=== PATIENT | female | born 1985 ===

== ENCOUNTER 2016-09-10 11:19 | Emergency (ER) | payer SELFPAY ==
[2016-09-10 11:43] VITALS: BP 104/73; PULSE 89; RESP 18; TEMP 98.3; O2SAT 100
--- NOTE | 2016-09-10 13:44 | ED PDOC ---
HPI: Abdomen Time Seen by Provider: 09/10/16 13:00 Chief Complaint (Nursing): Abdominal Pain Chief Complaint (Provider): Abdominal Pain History Per: Patient History/Exam Limitations: no limitations Onset/Duration Of Symptoms: Days (x2 days) Current Symptoms Are (Timing): Still Present Additional Complaint(s): 30 y/o female presents to the emergency department with an abdominal pain described as "heavy weight" to the lower abdominal region x2 days. Associated with chills, ear pain, headache, fever, and experiencing a burning sensation during urination. Patient, A1, states she is 3 weeks far along within her and feels too much weight on her belly. Denies vomiting, vaginal bleeding, or cough. LMP: 08/03/2016 Past Medical History Reviewed: Historical Data, Nursing Documentation, Vital Signs Vital Signs: Last Vital Signs Temp 98.3 F 09/10/16 11:39 Pulse 89 09/10/16 11:39 Resp 18 09/10/16 11:39 BP 104/73 09/10/16 11:39 Pulse Ox 100 09/10/16 14:11 - Medical History PMH: Anxiety, Depression Denies: Diabetes, Hepatitis, HIV, HTN, Chronic Kidney Disease, Seizures, Sexually Transmitted Disease - Surgical History Surgical History: Cholecystectomy - Family History Family History: States: Unknown Family Hx - Social History Current smoker - smoking cessation education provided: No Alcohol: None Drugs: Denies - Home Medications Home Medications: Ambulatory Orders Medication Instructions Recorded Citalopram [celEXA] 20 mg PO DAILY #30 tab 02/29/16 Mirtazapine [Remeron] 15 mg PO HS PRN #30 tab 02/29/16 Cephalexin [Keflex] 500 mg PO QID #28 capsule 09/10/16 - Allergies Allergies/Adverse Reactions: Allergies Allergy/AdvReac Type Severity Reaction Status Date / Time aspirin Allergy SHORTNESS Verified 02/25/16 21:22 OF BREATH Review of Systems ROS Statement: Except As Marked, All Systems Reviewed And Found Negative Constitutional: Positive for: Fever, Chills ENT: Positive for: Ear Pain Respiratory: Negative for: Cough Gastrointestinal: Positive for: Abdominal Pain (described as "heavy weight" to the lower abdominal region). Negative for: Vomiting Genitourinary Female: Positive for: Dysuria. Negative for: Vaginal Bleeding Neurological: Positive for: Headache Physical Exam - Reviewed Nursing Documentation Reviewed: Yes Vital Signs Reviewed: Yes - Physical Exam Appears: Positive for: Non-toxic, No Acute Distress Head Exam: Positive for: ATRAUMATIC, NORMAL INSPECTION, NORMOCEPHALIC Skin: Positive for: Normal Color, Warm, Dry ENT: Positive for: Other (Left ear is erythematous with some fluid. ). Negative for: Normal ENT Inspection Neck: Positive for: Normal, Supple Cardiovascular/Chest: Positive for: Regular Rate, Rhythm. Negative for: Murmur Respiratory: Positive for: Normal Breath Sounds. Negative for: Accessory Muscle Use, Respiratory Distress Gastrointestinal/Abdominal: Positive for: Normal Exam, Soft. Negative for: Tenderness Neurologic/Psych: Positive for: Alert, Oriented - ECG O2 Sat by Pulse Oximetry: 100 (RA) Pulse Ox Interpretation: Normal Medical Decision Making Medical Decision Making: Time: 13:20 Initial impression: Abdominal Pain rule out urinary tract infection. Left ear otitis media. Initial plan: --Tylenol 650 mg PO --Urine C&S --Urinalysis STAT --Reevaluation Time: 14:05 Upon provider reevaluation patient is feeling better, is medically stable, and requires no further treatment in the ED at this time. Patient will be discharged home with Rx for Keflex 500 mg for otitis media and uti. Counseling was provided and all questions were answered regarding diagnosis and need for follow up with referred clinics. There is agreement to discharge plan. Return if symptoms persist or worsen. Clinical Impression: Dysuria and Abdominal pain during Scribe Attestation: Documented by Virginia Griffith, acting as a scribe for Eric Altman MD. Provider Scribe Attestation: All medical record entries made by the Scribe were at my direction and personally dictated by me. I have reviewed the chart and agree that the record accurately reflects my personal performance of the history, physical exam, medical decision making, and the department course for this patient. I have also personally directed, reviewed, and agree with the discharge instructions and disposition. Disposition - Clinical Impression Clinical Impression: Abdominal pain during , Dysuria - Patient ED Disposition Is Patient to be Admitted: No Counseled Patient/Family Regarding: Diagnosis, Need For Followup, Rx Given - Disposition Referrals: [facility] [Outside] [facility] [Outside] Disposition: Routine/Home Disposition Time: 14:00 Condition: IMPROVED Additional Instructions: follow up with your primary ripshear operator in 1-2 days return to the ED with any worsening or concerning symptoms. Prescriptions: Cephalexin [Keflex] 500 mg PO QID #28 capsule Instructions: Otitis Media (ED), Urinary Tract Infection in (ED) Print Language: GUINEAN
[2016-09-10 13:54] LABS: RBC URINE 5 /hpf (0-3); URINE BACTERIA OCC (<OCC); URINE BILIRUBIN NEGATIVE (NEGATIVE); URINE BLOOD NEGATIVE (NEGATIVE); URINE COLOR YELLOW (YELLOW); URINE GLUCOSE (UA) NEG (Normal); URINE KETONE NEGATIVE (NEGATIVE); URINE LEUKOCYTE ESTERASE MOD Leu/uL (Negative); URINE PROTEIN NEGATIVE (NEGATIVE); URINE UROBILINOGEN 0.2-1.0 mg/dL (0.2-1.0); WBC URINE 36 /hpf (0-5)
== END 2016-09-10 14:45 | disposition home or self-care (01) ==
LOC: H.ER 11:19
DX: O23.40 Unspecified infection of urinary tract in pregnancy, unspecified trimester (principal); H66.92 Otitis media, unspecified, left ear

== ENCOUNTER 2016-10-28 21:29 | Emergency (ER) | payer OTHER, MEDICAID ==
[2016-10-28 21:46] VITALS: BP 146/71; PULSE 81; RESP 16; TEMP 98.1; O2SAT 100
[2016-10-28] MEDS ORDERED: Sodium Chloride 0.9% 1,000 ML IV STA (22:11)
--- NOTE | 2016-10-28 22:17 | ED PDOC ---
HPI: General Adult Time Seen by Provider: 10/28/16 22:01 Chief Complaint (Nursing): ENT Problem Chief Complaint (Provider): left ear irritation, headache, vomiting, chest pain History Per: Patient History/Exam Limitations: no limitations Onset/Duration Of Symptoms: Days Current Symptoms Are (Timing): Still Present Additional History Per: Patient Additional Complaint(s): 31 y/o female, approx 12 weeks gestation, presents with multiple complaints. Patient notes intermittent itching/pain to left ear x 6 months; notes headaches and dizziness when symptoms present. Patient also notes nausea/vomiting since began, was given rx for Zofran by her Field Recruiter but has not yet filled it. Patient notes intermittent midsternal chest pain that started yesterday, worse with movement. Denies fever, dizziness, neck pain, extremity numbness/ weakness, vision changes, nasal congestion/discharge, cough, shortness of breath , palpitations, abdominal pain, vaginal bleeding/discharge, dysuria, hematuria. Past Medical History Reviewed: Historical Data, Nursing Documentation, Vital Signs Vital Signs: Last Vital Signs Temp 98.1 F 10/28/16 21:40 Pulse 81 10/28/16 21:40 Resp 16 10/28/16 21:40 BP 146/71 10/28/16 21:40 Pulse Ox 100 10/28/16 22:42 - Medical History PMH: Anxiety, Depression Denies: Diabetes, Hepatitis, HIV, HTN, Chronic Kidney Disease, Seizures, Sexually Transmitted Disease - Surgical History Surgical History: Cholecystectomy - Family History Family History: States: Unknown Family Hx - Home Medications Home Medications: Ambulatory Orders Medication Instructions Recorded Citalopram [celEXA] 20 mg PO DAILY #30 tab 02/29/16 Mirtazapine [Remeron] 15 mg PO HS PRN #30 tab 02/29/16 Cephalexin [Keflex] 500 mg PO QID #28 capsule 09/10/16 Ciprofloxacin HCl [Cetraxal] 0.5 mg BID #1 bottle 10/29/16 - Allergies Allergies/Adverse Reactions: Allergies Allergy/AdvReac Type Severity Reaction Status Date / Time aspirin Allergy SHORTNESS Verified 02/25/16 21:22 OF BREATH Review of Systems ROS Statement: Except As Marked, All Systems Reviewed And Found Negative ENT: Positive for: Ear Pain (itching, left) Cardiovascular: Positive for: Chest Pain Gastrointestinal: Positive for: Nausea, Vomiting Neurological: Positive for: Headache Physical Exam - Reviewed Nursing Documentation Reviewed: Yes Vital Signs Reviewed: Yes - Physical Exam Appears: Positive for: Well, Non-toxic, No Acute Distress Head Exam: Positive for: ATRAUMATIC, NORMAL INSPECTION, NORMOCEPHALIC Skin: Positive for: Normal Color Eye Exam: Positive for: Normal appearance, EOMI, PERRL ENT: Positive for: Normal ENT Inspection, TM Is/Are (TMs clear b/l. EACs clear b /l. tender upon palpation of left tragus, tender with speculum instertion. no mastoid swelling/tenderness b/l). Negative for: Nasal Congestion, Pharyngeal Erythema, Tonsillar Exudate, Tonsillar Swelling Neck: Positive for: Normal, Painless ROM Cardiovascular/Chest: Positive for: Regular Rate, Rhythm. Negative for: Chest Non Tender (tender to palpate upper to mid sternum; no ecchymosis, swelling noted) Respiratory: Positive for: Normal Breath Sounds Gastrointestinal/Abdominal: Positive for: Normal Exam, Bowel Sounds, Soft. Negative for: Tenderness Back: Positive for: Normal Inspection Extremity: Positive for: Normal ROM Neurologic/Psych: Positive for: Alert, Oriented - Laboratory Results Result Diagrams: 10/28/16 22:37 10/28/16 22:37 - ECG O2 Sat by Pulse Oximetry: 100 - Progress ED Course And Treament: labs, urine, IV fluids, IV reglan, PO tylenol On re-eval, patient feeling better. Patient educated on findings, discharged with rx Cipro otic. Advised Tylenol PRN pain. Follow up Field Recruiter. Return to ED for worsening/concerning symptoms. Disposition - Clinical Impression Clinical Impression: Otitis externa, Hyperemesis gravidarum, Headache, Atypical chest pain - Patient ED Disposition Is Patient to be Admitted: No Counseled Patient/Family Regarding: Studies Performed, Diagnosis, Need For Followup, Rx Given - Disposition Disposition: Routine/Home Disposition Time: 00:44 Condition: IMPROVED Prescriptions: Ciprofloxacin HCl [Cetraxal] 0.5 mg BID #1 bottle Instructions: Hyperemesis Gravidarum (ED), Otitis Externa (ED), Acute Headache (ED), Chest Wall Pain (ED) Print Language: ARMENIAN
[2016-10-28 22:43] LABS: BASO % 0.6 % (0.0-2.0); EOS # 0.1 K/uL (0.0-0.7); EOS % 1.6 % (0.0-4.0); HEMOGLOBIN 10.3 g/dL (12.0-16.0); LYMPH # 2.4 K/uL (1.0-4.3); LYMPH % 32.6 % (20.0-40.0); MEAN CELL VOLUME 85.2 fl (81.0-99.0); MEAN CORPUSCULAR HEMOGLOBIN 28.5 pg (27.0-31.0); MEAN CORPUSCULAR HGB CONC 33.4 g/dL (33.0-37.0); MEAN PLATELET VOLUME 9.4 fl (7.2-11.7); MONO # 0.7 K/uL (0.0-0.8); MONO % 9.4 % (0.0-10.0); NEUT # 4.1 K/uL (1.8-7.0); NEUT % 55.8 % (50.0-75.0); RBC 3.63 Mil/uL (3.80-5.20); RED CELL DISTRIBUTION WIDTH 15.5 % (11.5-14.5); WHITE BLOOD COUNT 7.3 K/uL (4.8-10.8)
[2016-10-28 23:03] LABS: ALB/GLOB RATIO 1.2 (1.0-2.1); ALBUMIN 3.7 g/dL (3.5-5.0); ALT/SGPT 39 U/L (9-52); AST/SGOT 31 U/L (14-36); BLOOD UREA NITROGEN 7 mg/dl (7-17); CALCIUM 9.4 mg/dL (8.4-10.2); GFR AFRICAN-AMERICAN > 60; GFR NON-AFRICAN AMERICAN > 60
[2016-10-28 23:04] LABS: SQUAMOUS EPITHIAL 7 /hpf (0-5); URINE BACTERIA RARE (<OCC); URINE BILIRUBIN NEGATIVE (NEGATIVE); URINE BLOOD NEGATIVE (NEGATIVE); URINE CLARITY CLOUDY (Clear); URINE COLOR YELLOW (YELLOW); URINE GLUCOSE (UA) NEG (Normal); URINE LEUKOCYTE ESTERASE MOD Leu/uL (Negative); URINE NITRATE NEGATIVE (NEGATIVE); URINE PROTEIN NEGATIVE (NEGATIVE)
--- NOTE | 2016-10-29 07:48 | CARD ---
APPROVED REPORT EKG Measurement Heart [id number] <Conclusion> Sinus rhythm with 1st degree AV block Otherwise normal ECG
== END 2016-10-29 00:55 | disposition home or self-care (01) ==
LOC: H.ER 21:29
DX: H60.502 Unspecified acute noninfective otitis externa, left ear (principal); R51 Headache; R07.89 Other chest pain; O21.0 Mild hyperemesis gravidarum; Z3A.12 12 weeks gestation of pregnancy

== ENCOUNTER 2016-12-10 15:21 | Emergency (ER) | payer MEDICAID, SELFPAY ==
[2016-12-10 15:37] VITALS: BP 119/67; PULSE 75; RESP 16; TEMP 98; O2SAT 99
--- NOTE | 2016-12-10 16:45 | ED PDOC ---
HPI: Female Pain Time Seen by Provider: 12/10/16 16:07 Chief Complaint (Nursing): Abdominal Pain History Per: Patient History/Exam Limitations: no limitations Onset/Duration Of Symptoms: Days (1), Gradual Severity: Mild Quality Of Discomfort: Cramping Associated Symptoms: denies: Fever, Chills, Nausea, Vomiting, Back Pain, Chest Pain, Constipation, Urinary Symptoms Alleviating Factors: None Additional History Per: Patient Additional Complaint(s): To ED for evaluation of pelvic pain since this morning. Patient is 19 weeks . Denies vaginal bleeding. no urianry complaints. A2 Abnormal Vaginal Bleeding: No Past Medical History Reviewed: Historical Data, Nursing Documentation, Vital Signs Vital Signs: Last Vital Signs Temp 98.0 F 12/10/16 15:35 Pulse 75 12/10/16 15:35 Resp 16 12/10/16 15:35 BP 119/67 12/10/16 15:35 Pulse Ox 99 12/10/16 15:35 - Medical History PMH: Anxiety, Depression Denies: Diabetes, Hepatitis, HIV, HTN, Chronic Kidney Disease, Seizures, Sexually Transmitted Disease - Surgical History Surgical History: Cholecystectomy - Family History Family History: States: Unknown Family Hx - Living Arrangements Living Arrangements: With Family - Social History Current smoker - smoking cessation education provided: No - Home Medications Home Medications: Ambulatory Orders Medication Instructions Recorded Citalopram [celEXA] 20 mg PO DAILY #30 tab 02/29/16 Mirtazapine [Remeron] 15 mg PO HS PRN #30 tab 02/29/16 Cephalexin [Keflex] 500 mg PO QID #28 capsule 09/10/16 Ciprofloxacin HCl [Cetraxal] 0.5 mg BID #1 bottle 10/29/16 - Allergies Allergies/Adverse Reactions: Allergies Allergy/AdvReac Type Severity Reaction Status Date / Time aspirin Allergy SHORTNESS Verified 02/25/16 21:22 OF BREATH Review of Systems ROS Statement: Except As Marked, All Systems Reviewed And Found Negative Constitutional: Negative for: Fever, Chills Cardiovascular: Negative for: Chest Pain, Palpitations Respiratory: Negative for: Cough, Shortness of Breath Gastrointestinal: Negative for: Nausea, Vomiting, Abdominal Pain, Diarrhea Genitourinary Female: Positive for: Pelvic Pain. Negative for: Dysuria, Frequency, Incontinence, Hematuria, Vaginal Discharge, Vaginal Bleeding Musculoskeletal: Negative for: Neck Pain Neurological: Negative for: Weakness, Numbness Physical Exam - Reviewed Nursing Documentation Reviewed: Yes Vital Signs Reviewed: Yes - Physical Exam Appears: Positive for: Uncomfortable Head Exam: Positive for: ATRAUMATIC, NORMAL INSPECTION, NORMOCEPHALIC Eye Exam: Positive for: Normal appearance Neck: Positive for: Normal, Painless ROM, Supple Cardiovascular/Chest: Positive for: Regular Rate, Rhythm, Chest Non Tender. Negative for: Edema, Gallop, Murmur, Bradycardia, Tachycardia Respiratory: Positive for: Normal Breath Sounds. Negative for: Decreased Breath Sounds, Accessory Muscle Use, Crackles, Rhonchi, Stridor, Wheezing Gastrointestinal/Abdominal: Positive for: Normal Exam, Bowel Sounds, Soft, Other (obese). Negative for: Tenderness Back: Positive for: Normal Inspection. Negative for: L CVA Tenderness, R CVA Tenderness, Vertebral Tenderness, Decreased ROM, Muscle Spasm Extremity: Positive for: Normal ROM. Negative for: Tenderness, Pedal Edema, Calf Tenderness, Capillary Refill, Deformity, Swelling Neurologic/Psych: Positive for: Alert, tool and die inspector II-XII, Oriented. Negative for: Motor/Sensory Deficits - ECG O2 Sat by Pulse Oximetry: 99 Pulse Ox Interpretation: Normal Disposition - Clinical Impression Clinical Impression: Pelvic pain - Patient ED Disposition Is Patient to be Admitted: Transfer of Care Counseled Patient/Family Regarding: Studies Performed, Diagnosis - Disposition Disposition Time: 16:47 Condition: STABLE Patient Signed Over To: Robert Snyder
[2016-12-10 17:41] LABS: BASO % 0.3 % (0.0-2.0); EOS # 0.1 K/uL (0.0-0.7); HEMATOCRIT 31.1 % (34.0-47.0); LYMPH # 1.7 K/uL (1.0-4.3); LYMPH % 23.3 % (20.0-40.0); MEAN CORPUSCULAR HEMOGLOBIN 28.4 pg (27.0-31.0); MEAN PLATELET VOLUME 9.2 fl (7.2-11.7); MONO # 0.6 K/uL (0.0-0.8); MONO % 8.8 % (0.0-10.0); NEUT # 4.9 K/uL (1.8-7.0); NEUT % 66.6 % (50.0-75.0); RED CELL DISTRIBUTION WIDTH 14.9 % (11.5-14.5); WHITE BLOOD COUNT 7.3 K/uL (4.8-10.8)
[2016-12-10 17:49] LABS: RBC URINE 1 /hpf (0-3); URINE BILIRUBIN NEGATIVE (NEGATIVE); URINE BLOOD NEGATIVE (NEGATIVE); URINE COLOR YELLOW (YELLOW); URINE GLUCOSE (UA) NEG (Normal); URINE KETONE NEGATIVE (NEGATIVE); URINE LEUKOCYTE ESTERASE MOD Leu/uL (Negative); URINE PROTEIN NEGATIVE (NEGATIVE); URINE UROBILINOGEN 0.2-1.0 mg/dL (0.2-1.0); WBC URINE 3 /hpf (0-5)
[2016-12-10 17:52] LABS: ALB/GLOB RATIO 1.2 (1.0-2.1); ALKALINE PHOSPHATASE 120 U/L (38-126); ALT/SGPT 41 U/L (9-52); AST/SGOT 24 U/L (14-36); BILIRUBIN,TOTAL 0.3 mg/dl (0.2-1.3); BLOOD UREA NITROGEN 6 mg/dl (7-17); CALCIUM 9.5 mg/dL (8.4-10.2); CARBON DIOXIDE 22 mmol/L (22-30); CHLORIDE 106 mmol/L (98-107); GFR AFRICAN-AMERICAN > 60; GLUCOSE,RANDOM 97 mg/dL (65-105); LIPASE 66 U/L (23-300); SODIUM 137 mmol/l (132-148); TOTAL PROTEIN 7.1 G/DL (6.3-8.2)
--- NOTE | 2016-12-10 18:32 | US ---
OB , limited Indication: Pain, rule out abruption Comparison: Ob 1st trimester ultrasound performed 10/16/16 Technique: Real-time ultrasound was performed through the pelvis. Findings: There is a single living fetus in cephalic presentation. Anterior placenta. The placenta is not previa. Bilateral ovaries are not visualized. There are no adnexal masses or cysts evident. Cervix length measures approximately 5.1 cm. Measurements and calculations: Fetus has a composite sonographic age of 18 weeks 3 days. This calculation is based on the biparietal diameter, head circumference, abdominal circumference, and femur length. Estimated heart rate 147.2 beats per min. Impression: Single living fetus with a composite sonographic age of 18 weeks 3 days. Estimated heart rate 147.2 beats per min. The study was performed for the emergent evaluation of pain, and the whole anatomic survey of the fetus was not performed. This should be performed on an outpatient elective basis as clinically warranted.
--- NOTE | 2016-12-10 18:41 | ED PDOC ---
HPI: Abdomen Time Seen by Provider: 12/10/16 16:07 Chief Complaint (Nursing): Abdominal Pain History Per: Patient History/Exam Limitations: no limitations Onset/Duration Of Symptoms: Days (1), Gradual Past Medical History Vital Signs: Last Vital Signs Temp 98.0 F 12/10/16 15:35 Pulse 75 12/10/16 15:35 Resp 16 12/10/16 15:35 BP 119/67 12/10/16 15:35 Pulse Ox 99 12/10/16 16:50 - Medical History PMH: Anxiety, Depression Denies: Diabetes, Hepatitis, HIV, HTN, Chronic Kidney Disease, Seizures, Sexually Transmitted Disease - Surgical History Surgical History: Cholecystectomy - Family History Family History: States: Unknown Family Hx - Social History Current smoker - smoking cessation education provided: No - Home Medications Home Medications: Ambulatory Orders Medication Instructions Recorded Citalopram [celEXA] 20 mg PO DAILY #30 tab 02/29/16 Mirtazapine [Remeron] 15 mg PO HS PRN #30 tab 02/29/16 Cephalexin [Keflex] 500 mg PO QID #28 capsule 09/10/16 Ciprofloxacin HCl [Cetraxal] 0.5 mg BID #1 bottle 10/29/16 - Allergies Allergies/Adverse Reactions: Allergies Allergy/AdvReac Type Severity Reaction Status Date / Time aspirin Allergy SHORTNESS Verified 02/25/16 21:22 OF BREATH - Laboratory Results Result Diagrams: 12/10/16 17:20 12/10/16 17:20 - ECG O2 Sat by Pulse Oximetry: 99 Disposition - Clinical Impression Clinical Impression: Pelvic pain, Round ligament pain - Patient ED Disposition Is Patient to be Admitted: No Counseled Patient/Family Regarding: Studies Performed, Diagnosis, Need For Followup - Disposition Disposition: Routine/Home Disposition Time: 18:40 Condition: STABLE Instructions: Abdominal Pain in (ED) Forms: [employer] ([place])
== END 2016-12-10 18:55 | disposition home or self-care (01) ==
LOC: H.ER 15:21
DX: O26.892 Other specified pregnancy related conditions, second trimester (principal); Z3A.18 18 weeks gestation of pregnancy; O99.342 Other mental disorders complicating pregnancy, second trimester; F41.9 Anxiety disorder, unspecified

== ENCOUNTER 2017-03-26 22:53 | Emergency (ER) | payer MEDICAID, OTHER ==
[2017-03-26 23:46] VITALS: BMI 38.0
[2017-03-27 01:05] LABS: HEMOGLOBIN 8.8 g/dL (12.0-16.0); MEAN CELL VOLUME 79.8 fl (81.0-99.0); MEAN CORPUSCULAR HEMOGLOBIN 25.7 pg (27.0-31.0); MEAN CORPUSCULAR HGB CONC 32.2 g/dL (33.0-37.0); RBC 3.41 Mil/uL (3.80-5.20); RED CELL DISTRIBUTION WIDTH 16.5 % (11.5-14.5)
[2017-03-27 01:06] LABS: SQUAMOUS EPITHIAL 2 /hpf (0-5); URINE BACTERIA RARE (<OCC); URINE BILIRUBIN NEGATIVE (NEGATIVE); URINE BLOOD NEGATIVE (NEGATIVE); URINE CLARITY SLIGHTY-CLOUDY (Clear); URINE COLOR YELLOW (YELLOW); URINE GLUCOSE (UA) NEG (Normal); URINE NITRATE NEGATIVE (NEGATIVE); URINE PROTEIN NEGATIVE (NEGATIVE); URINE UROBILINOGEN 0.2-1.0 mg/dL (0.2-1.0)
[2017-03-27 01:11] LABS: URINE LEUKOCYTE ESTERASE NEGATIVE Leu/uL (Negative)
[2017-03-27 01:25] LABS: ALBUMIN 3.4 g/dL (3.5-5.0); BILIRUBIN,DIRECT 0.2 mg/ml (0.0-0.4)
[2017-03-27 07:09] VITALS: BP 103/48; PULSE 72
--- NOTE | 2017-03-27 09:31 | OBHP ---
Datetime: 03/27/2017 01:00 IP Adm Impression: , intrauterine IP Admit Plan: Discharge home Admit Comment, IP Provider: ua, cbc, amylase, lipase, lft wnl Pt symptoms spontaneously resolved dc home with er precautions f/u visit with on thursday Case dw Dr. Devon Carballo md [email or web address] Pelvic Type - PN: Adequate Extremities - PN: Normal Abdomen - PN: Normal Back - PN: Normal Breast - PN: Not Done Lungs - PN: Normal Heart - PN: Normal Thyroid - PN: Not Done Neurologic - PN: Normal HEENT - PN: Normal General - PN: Normal FHR - Baseline A Provider: 150 EGA AdmitDate IP: 33.5 Vital Signs Provider: Reviewed; Within Normal Limits IP Chief Complaint: Maternal discomfort NICHD Variability Prov Fetus A: Moderate 6-25bpm NICHD Accel Fetus A IP Provider: [id number] FHR Category Provider Fetus A: Category I NICHD Decel Fetus A IP Provider: None Dilatation, Provider: closed Genitourinary Exam: Normal DTRs - PN: Not Done Datetime: 03/26/2017 23:30 Pool Provider: Negative
== END 2017-03-27 03:00 | disposition home or self-care (01) ==
LOC: H.EROB2 22:53
DX: O26.93 Pregnancy related conditions, unspecified, third trimester (principal); R10.2 Pelvic and perineal pain; R51 Headache; Z3A.33 33 weeks gestation of pregnancy

== ENCOUNTER 2017-04-16 16:33 | Emergency (ER) | payer MEDICAID, SELFPAY ==
[2017-04-16 18:03] VITALS: BMI 37.8
[2017-04-16 23:04] VITALS: BP 110/64; PULSE 76; TEMP 97.3; O2SAT 97
== END 2017-04-16 18:50 | disposition home or self-care (01) ==
LOC: H.EROB2 16:33
DX: O99.343 Other mental disorders complicating pregnancy, third trimester (principal); F32.9 Major depressive disorder, single episode, unspecified; O24.419 Gestational diabetes mellitus in pregnancy, unspecified control; Z3A.36 36 weeks gestation of pregnancy

== ENCOUNTER 2017-04-21 13:47 | Emergency (ER) | payer SELFPAY ==
[2017-04-21 21:27] VITALS: BP 114/77; PULSE 71
--- NOTE | 2017-04-22 09:10 | OBHP ---
Datetime: 04/21/2017 14:32 IP Adm Impression: Term, intrauterine ; No Active Labor IP Chief Complaint Other: GDM IP Admit Plan: Observation/Evaluation Admit Comment, IP Provider: 31yo with IUP at 37+ wks here today c/o decreased movements. Has a GDM in current and has been doing weekly BPP. The last appointment for BPP was resche duled. She currently reports good movements, denies VB or LOF. CLARISSE- None, FHR- Category 1, Cx- 3/40/-3 Assessment: IUP at 37wks - NST reactive. - GDMA1 Plan - NST - BPP - Re evaluate. Accucheck- 95 Re evaluated after Official BPP done at the bedside: BPP 8/8, HANH - 15.0 Plan: D/C Home F/U with OB Clinic in 3 days. Pelvic Type - PN: Adequate Extremities - PN: Normal Abdomen - PN: Normal Back - PN: Normal Breast - PN: Normal Lungs - PN: Normal Heart - PN: Normal Thyroid - PN: Normal Neurologic - PN: Normal HEENT - PN: Normal General - PN: Normal Presentation-Admit: Vertex FHR - Baseline A Provider: 150 Membranes, Provider: Intact Comments, ACOG Physical Exam: Abd: Soft, NT, BS- present. (Annotations: Data stored by CPN on behalf of user) Gestation - Est Wks by US: 37.0 EGA AdmitDate IP: 37.2 Vital Signs Provider: Reviewed IP Chief Complaint: Decreased movement NICHD Variability Prov Fetus A: Moderate 6-25bpm NICHD Accel Fetus A IP Provider: [id number] FHR Category Provider Fetus A: Category I NICHD Decel Fetus A IP Provider: None Dilatation, Provider: 3 Effacement, Provider: 40 Station, Provider: -3 Genitourinary Exam: Normal DTRs - PN: Normal
--- NOTE | 2017-04-22 12:37 | US ---
PROCEDURE: Biophysical profile HISTORY: Decreased Movements, h/o GDM COMPARISON: 12/10/2016 2nd trimester ultrasound. TECHNIQUE: Standard protocol for this study/examination. FINDINGS: FINDINGS: Biophysical profile score 8/8 Based on the followin. breathing movements: 2/2 2. Gross body movement: 2/2 3. tone: 2/2 4. Qualitative amniotic fluid index: 2/2 Amniotic fluid volume 15.0 cm. Cephalic presentation. Closed cervix 5.2 cm. Anterior placenta without evidence of previa or abruption. Calculated cardiac rate 141. IMPRESSION: Biophysical profile score 8/8.
== END 2017-04-21 17:00 | disposition home or self-care (01) ==
LOC: H.EROB2 13:47
DX: O47.1 False labor at or after 37 completed weeks of gestation (principal); O36.8131 Decreased fetal movements, third trimester, fetus 1; O24.419 Gestational diabetes mellitus in pregnancy, unspecified control; Z3A.37 37 weeks gestation of pregnancy

== ENCOUNTER 2017-04-27 13:14 | Inpatient (IN) | payer MEDICAID, SELFPAY ==
[2017-04-27] MEDS ORDERED: Oxytocin 30 units/LR 500ML 30 U/500 ML BAG IV ONE (13:57)
--- NOTE | 2017-04-27 14:13 | OBADHP ---
Datetime: 04/27/2017 14:03 IP Chief Complaint Other: non compliant diabetic Admit Comment, IP Provider: Patient is a @ 38.1 wks reporting cramps and yellow vaginal disc harge. Patient was ruled out for rupture, HANH today on U/S was 15, vertex. Patient on exam is 4cm/50/ -2. Patient is a non compliant GDMA2 that has not started her Glyburide. Patient's fasting and post p radial sugars are consistantly over 95 and 120 respectively for the past 2 weeks. Patient was told to start Glyburide, but she said she was afraid. I informed the patient uncontrolled sugars can lead to hypoglycemia, hyperbilerubinemia, macrosomia and even . Because of her non-complian ce, decision is to induce patient. She is also obese, anemic, no other medical/surgical issues [id number] mod shaggy, +accels, no decels TOCO=karly q 6 mins A/P 1. Patinet for induction due to non-compliance with GDMA2. Start IVF, CBC, Type and screen, CMP 2. Start Pitocin for augmentation 3. CEFM and TOCO 4. Pain management if patient would like it Pelvic Type - PN: Adequate Extremities - PN: Normal Abdomen - PN: Normal Back - PN: Normal Breast - PN: Normal Lungs - PN: Normal Heart - PN: Normal Thyroid - PN: Normal Neurologic - PN: Normal HEENT - PN: Normal General - PN: Normal Presentation-Admit: Vertex FHR - Baseline A Provider: 150 Membranes, Provider: Intact Contraction Comments Provider: q 6 mins Vital Signs Provider: Reviewed; Within Normal Limits NICHD Variability Prov Fetus A: Moderate 6-25bpm NICHD Accel Fetus A IP Provider: [id number] FHR Category Provider Fetus A: Category I NICHD Decel Fetus A IP Provider: None Dilatation, Provider: 4 Effacement, Provider: 50 Station, Provider: -3 Genitourinary Exam: Normal DTRs - PN: Normal IP Adm Impression: Term, intrauterine IP Admit Plan: Admit to unit; Initiate labor induction protocol Datetime: 04/21/2017 14:32 Comments, ACOG Physical Exam: Abd: Soft, NT, BS- present. (Annotations: Data stored by CPN on behalf of user) Gestation - Est Wks by US: 37.0 IP Chief Complaint: Decreased movement EGA AdmitDate IP: 37.2 Datetime: 03/26/2017 23:30 Pool Provider: Negative
[2017-04-27] MEDS: Lactated Ringer's 1,000 ML IV SCH ×2 (14:15→15:20)
[2017-04-27 14:34] LABS: BASO % 0.4 % (0.0-2.0); EOS % 0.4 % (0.0-4.0); HEMOGLOBIN 11.2 g/dL (12.0-16.0); LYMPH # 2.3 K/uL (1.0-4.3); LYMPH % 28.9 % (20.0-40.0); MEAN CELL VOLUME 86.2 fl (81.0-99.0); MEAN CORPUSCULAR HGB CONC 32.5 g/dL (33.0-37.0); MEAN PLATELET VOLUME 10.3 fl (7.2-11.7); MONO # 0.6 K/uL (0.0-0.8); NEUT % 62.3 % (50.0-75.0); NRBC % 0.2 % (0.0-0.0); RBC 3.98 Mil/uL (3.80-5.20); RED CELL DISTRIBUTION WIDTH 24.9 % (11.5-14.5); WHITE BLOOD COUNT 8.1 K/uL (4.8-10.8)
[2017-04-27 14:43] LABS: ALBUMIN 3.4 g/dL (3.5-5.0); ALT/SGPT 51 U/L (9-52); AST/SGOT 39 U/L (14-36); BLOOD UREA NITROGEN 9 mg/dl (7-17); CALCIUM 9.3 mg/dL (8.4-10.2); GFR AFRICAN-AMERICAN > 60; GFR NON-AFRICAN AMERICAN > 60
[2017-04-27] MEDS ORDERED: Penicillin G 5 Million Unit Vial IVPB ONE (15:16)
[2017-04-27] MEDS ORDERED: Fentanyl/Bupivacaine HCl 250 ML EPI ONE (17:02)
[2017-04-27] MEDS ORDERED: Lactated Ringer's 1,000 ML IV SCH (18:15)
[2017-04-27] MEDS ORDERED: Oxytocin 30 UNITS in Sodium Chloride 0.9% 500 ML IV SCH (21:30)
[2017-04-27] MEDS ORDERED: Oxycodone/Acetaminophen 5/325 mg Tab PO PRN ×2 (21:45)
--- NOTE | 2017-04-27 21:47 | OBDS ---
MATERNAL INFORMATION Provider Comments: of live female over intact perineum, followed by shoulders and rest o f infant atraumatically, cord clamped and cut, placed on mother's chest and mouth/nose suction ed, cord blood obtained, placenta delivered spontaneously, fundus firm, no lacerations, [id number], pt tolerated the procedure well LABOR SUMMARY EDC: 05/10/2017 00:00 No. Babies in Womb: 1 (Annotations: Data stored by [facility] on behalf of user) LABOR INFORMATION Onset of Labor: 04/26/2017 20:00 Group B Beta Strep: Positive MEMBRANES Membranes Rupture Method: Artificial Amniotic Fluid Color: Bloody Amniotic Fluid Amount: Small PRESENTATION/POSITION BABY A Presentation: Cephalic
[2017-04-28] MEDS ORDERED: Oxytocin 30 UNITS in Sodium Chloride 0.9% 500 ML IV SCH (00:39)
[2017-04-28] MEDS ORDERED: Lactated Ringer's 1,000 ML IV SCH (00:39)
[2017-04-28] MEDS ORDERED: Oxycodone/Acetaminophen 5/325 mg Tab PO PRN ×2 (00:39)
[2017-04-28 05:57] LABS: HEMOGLOBIN 9.9 g/dL (12.0-16.0); MEAN CELL VOLUME 86.6 fl (81.0-99.0); MEAN CORPUSCULAR HEMOGLOBIN 28.1 pg (27.0-31.0); MEAN CORPUSCULAR HGB CONC 32.5 g/dL (33.0-37.0); RBC 3.54 Mil/uL (3.80-5.20); RED CELL DISTRIBUTION WIDTH 24.9 % (11.5-14.5); WHITE BLOOD COUNT 8.1 K/uL (4.8-10.8)
--- NOTE | 2017-04-29 03:56 | OBPPN ---
Datetime: 04/28/2017 06:20 PP Pain Prov: Within normal limits PP Nausea Prov: Denies PP Flatus Prov: Yes PP BM Prov: No PP Breasts Prov: Not Done PP Heart Prov: Normal PP Lungs Prov: Normal PP Abdomen/Uterus Prov: Normal PP Lochia Prov: Normal PP Vulva/Perineum Prov: Not Done PP CVA Tenderness Prov: Not Done PP Extremities Prov: Normal PP C/S Incision Prov: Not Applicable PP Impression Prov: Normal progression PP Plan Prov: Continue present management PP Progress Note Prov: 31 yo , s/p NVD on 04/27/17 at 21:37; PPD 1. Pt was seen and examined at bedside this morning; no acute events overnight. Reports mild abdominal pain that is well controlled with medication. She has ambulated around the room and to the bathroom; is voiding freely. Has pass ed gas, but has not had a BM. Lochia similar to menses in volume. Breast and bottle feeding baby. D enies fever, chills, chest pain, shortness of breath, nausea, vomiting, pain in calves. Gen: no acute distress, alert CV: S1S2, RRR Resp: normal effort of respiration, clear to auscultation bilaterally Abdomen: BS+, appropriate tenderness to palpation. Uterus is firm and at the level of the umbilicu s. Ext: no edema, calves nontender A: 31 yo s/p NVD 04/27/17. PPD 1. P: Continue pain control, encourage and ambulation. [id number]...saw pt on 23:00pm. She feels fine. Agree with note BEN Vital Signs Provider PP: Reviewed
--- NOTE | 2017-04-29 10:20 | OBPPN ---
Datetime: 04/29/2017 06:59 PP Pain Prov: Within normal limits PP Nausea Prov: Denies PP Flatus Prov: Yes PP BM Prov: Yes PP Breasts Prov: Not Done PP Heart Prov: Normal PP Lungs Prov: Normal PP Abdomen/Uterus Prov: Normal PP Lochia Prov: Normal PP Vulva/Perineum Prov: Not Done PP CVA Tenderness Prov: Not Done PP Extremities Prov: Normal PP C/S Incision Prov: Not Applicable PP Progress Prov: Normal PP Impression Prov: Normal progression PP Plan Prov: Discharge PP Plan Other Prov: pending social work clearance PP Progress Note Prov: 31 yo , s/p NVD on 04/27/17 at 21:37; PPD 2. Pt was seen and examined at bedside this morning; no acute events overnight. Reports mild abdominal pain that is well controlled with medication. She has ambulated around the room and to the bathroom; is voiding freely. Has pass ed gas, but has not had a BM. Lochia similar to menses in volume. Breast and bottle feeding baby. D enies fever, chills, chest pain, shortness of breath, nausea, vomiting, pain in calves. Scored 15 on [place] Depression Scale; awaiting to be seen by social work. Gen: no acute distress, alert CV: S1S2, RRR Resp: normal effort of respiration, clear to auscultation bilaterally Abdomen: BS+, appropriate tenderness to palpation. Uterus is firm and at the level of the umbilicu s. Ext: no edema, calves nontender A: 31 yo s/p NVD 04/27/17. PPD 2. Pt stable, pain well controlled. Doing well. P: Discharge today pending social work. [id number] Patient was seen with the resident I agree with the notes cleared for discharge post social servic e consult Vital Signs Provider PP: Reviewed; Within Normal Limits
--- NOTE | 2017-04-29 10:21 | CP.PCM.CON ---
History of Present Illness - History of Present Illness History of Present Illness: Psychiatry Consult note CC: "I'm good." HPI: 31 yo female w/ h/o depression, anxiety, now post , denies acute feelings of depression/anxiety/psychosis. No ideation to harm self or others. She is content with the recent of her daughter. She reports that she did have 4 or 5 panic attacks while she was , but reports that her mood has been stable otherwise. She has a history of treatment w/ Celexa and Remeron , but stopped taking the medication before she was . No history of violence or suicide attempts. PPHx: History of depression w/ psychotic features and anxiety. 1 previous psychiatric admission to [facility] from 02/25/18-02/28/18. PMHx: Gastritis ALL: Aspirin PSurgHx: Cholecystectomy SHx: Lives with boyfriend and children (12,5, +); denies domestic violence, denies drugs/etoh use. FHx: Mother w/ diabetes MSE: A + O x 3, calm, cooperative, good eye contact, speech normal, thought process linear/coherent, mood "good", affect-broad, no AH/VH/SI/HI, good I/J, good impulse control Impression: 31 yo female w/ history of depression and anxiety, now in remission. No current depression/anxiety/psychotic symptoms. Patient is not an acute danger to herself or others at this time. -No need for acute psychiatric admission or medications Past Patient History - Past Social History Smoking Status: Never Smoked - CARDIAC Hx Hypertension: No - PULMONARY Hx Tuberculosis: No - NEUROLOGICAL Hx Seizures: No - HEENT Hx HEENT Problems: No - RENAL Hx Chronic Kidney Disease: No - ENDOCRINE/METABOLIC Hx Endocrine Disorders: No - HEMATOLOGICAL/ONCOLOGICAL Hx Human Immunodeficiency Virus (HIV): No - INTEGUMENTARY Hx Dermatological Problems: No - MUSCULOSKELETAL/RHEUMATOLOGICAL Hx Musculoskeletal Disorders: No - GASTROINTESTINAL Hx Gastrointestinal Disorders: No - GENITOURINARY/GYNECOLOGICAL Hx Sexually Transmitted Disorders: No - PSYCHIATRIC Hx Anxiety: Yes Hx Depression: Yes - SURGICAL HISTORY Hx Cholecystectomy: Yes - ANESTHESIA Hx Anesthesia: Yes Hx Anesthesia Reactions: No Meds Allergies/Adverse Reactions: Allergies Allergy/AdvReac Type Severity Reaction Status Date / Time aspirin Allergy SHORTNESS Verified 04/27/17 14:14 OF BREATH - Medications Medications: Current Medications Ibuprofen (Motrin Tab) 600 mg PO Q6 PRN PRN Reason: Pain, Mild (1-3) Last Admin: 04/29/17 08:50 Dose: 600 mg Oxycodone/Acetaminophen (Percocet 5/325 Mg Tab) 1 tab PO Q4 PRN PRN Reason: Pain, moderate (4-7) Stop: 04/30/17 21:46 Last Admin: 04/28/17 11:53 Dose: 1 tab Oxycodone/Acetaminophen (Percocet 5/325 Mg Tab) 2 tab PO Q4 PRN PRN Reason: Pain, severe (8-10) Stop: 04/30/17 21:46 Sennosides (Senokot Tab) 17.2 mg PO HS KALLIE Last Admin: 04/28/17 21:26 Dose: 17.2 mg Results - Labs Result Diagrams: 04/28/17 05:15 04/27/17 14:15
--- NOTE | 2017-04-29 10:22 | OBDCSUM ---
Datetime: 04/21/2017 16:58 Discharge Instructions, Provider: Routine instructions given Discharge Diagnosis, Provider: Term Delivered Disch Referrals: None Contraception discussed, Prov: Yes Disch Activity Restrictions: No exercising; No sexual activity; Nothing in vagina - Ulen, deonna santana Discharge Comment, Provider: Patient cleared for discharge Contraception after Delivery: Undecided
[2017-04-30 02:59] VITALS: BP 107/64; PULSE 80; RESP 20; TEMP 97.9; O2SAT 99
== END 2017-04-29 16:30 | disposition home or self-care (01) | DRG 372 ==
LOC: H.EROB2 13:14 → H.L&D 13:55 → H.OB/GYN 04-28
PROVIDERS: ADMIT Obstetrics & Gynecology; ATTEND Obstetrics & Gynecology
PROC: 10E0XZZ Delivery of Products of Conception, External Approach (ICD-10-PCS; principal; 2017-04-27)
PROC: 4A1HXCZ Monitoring of Products of Conception, Cardiac Rate, External Approach (ICD-10-PCS; 2017-04-27)
DX: O36.8130 Decreased fetal movements, third trimester, not applicable or unspecified (principal); O24.429 Gestational diabetes mellitus in childbirth, unspecified control; E66.9 Obesity, unspecified; D64.9 Anemia, unspecified; O99.02 Anemia complicating childbirth; O99.824 Streptococcus B carrier state complicating childbirth; Z37.0 Single live birth; F41.0 Panic disorder [episodic paroxysmal anxiety]; O99.214 Obesity complicating childbirth; Z3A.38 38 weeks gestation of pregnancy; Z91.19 Patient's noncompliance with other medical treatment and regimen

== ENCOUNTER 2017-10-13 21:55 | Observation (INO) | payer MEDICAID, OTHER ==
[2017-10-13 21:56] VITALS: BMI 37.8
[2017-10-13 23:17] LABS: BASO % 0.3 % (0.0-2.0); EOS # 0.1 K/uL (0.0-0.7); EOS % 1.5 % (0.0-4.0); HEMOGLOBIN 11.6 g/dL (12.0-16.0); LYMPH # 2.7 K/uL (1.0-4.3); LYMPH % 40.1 % (20.0-40.0); MEAN CELL VOLUME 85.1 fl (81.0-99.0); MEAN CORPUSCULAR HEMOGLOBIN 28.3 pg (27.0-31.0); MEAN CORPUSCULAR HGB CONC 33.3 g/dL (33.0-37.0); MEAN PLATELET VOLUME 8.9 fl (7.2-11.7); MONO # 0.6 K/uL (0.0-0.8); NEUT # 3.3 K/uL (1.8-7.0); NEUT % 49.1 % (50.0-75.0); RBC 4.09 Mil/uL (3.80-5.20); WHITE BLOOD COUNT 6.7 K/uL (4.8-10.8)
[2017-10-13 23:25] LABS: BARBITURATES, UR NEGATIVE (NEGATIVE); BENZODIAZEPINES, UR NEGATIVE (NEGATIVE); OPIATES, UR NEGATIVE (NEGATIVE); PHENCYCLIDINE, UR NEGATIVE (NEGATIVE)
[2017-10-13 23:25] LABS: BLOOD UREA NITROGEN 13 mg/dl (7-17); CALCIUM 9.2 mg/dL (8.4-10.2); GFR AFRICAN-AMERICAN > 60; GFR NON-AFRICAN AMERICAN > 60
--- NOTE | 2017-10-13 23:36 | ED PDOC ---
Lower Extremity Pain/Injury Time Seen by Provider: 10/13/17 22:27 Chief Complaint (Nursing): Weakness/Neurological Deficit Chief Complaint (Provider): lower extremity pain and numbness History Per: Patient History/Exam Limitations: no limitations Onset/Duration Of Symptoms: Days (x2 weeks), Worse Since (x3 days) Current Symptoms Are (Timing): Still Present Additional Complaint(s): Jovana Urias is a 32 year old female, with a past medical history of depression, who presents to the emergency department complaining of a crampy bilateral leg pain and numbness onset for x2 weeks but worst for the last x3 days. Patient is also complaining of a headache, upper and mid back pain associated with right arm numbness onset since this morning. Patient states she has also been feeling depressed and thinks she is going to . She has a history of similar headaches and leg problems in the past. She denies any chest pain, fever, chills, abdominal pain, vomiting, diarrhea or other medical complaints. Patient has been admitted for depression in the past. PMD: None provided. NIHSS Stroke Scale - Date/Time Evaluation Performed Date Performed: 10/13/17 Time Performed: 22:00 When Was NIHSS Performed: Baseline - How Severe is the Stroke Level of Consciousness: 0=Alert LOC to Questions: 0=Both comments correct LOC to commands: 0=Obeys both correctly Best Gaze: 0=Normal Visual: 0=No visual loss Facial: 0=Normal Motor Arm - Left: 0=No drift Motor Arm - Right: 0=No drift Motor Leg - Left: 0=No drift Motor Leg - Right: 0=No drift Limb Ataxia: 0=Absent Sensory: 0=Normal Best Language: 0=No aphasia Dysarthia: 0=Normal articulation Extinction & Inattention (Neglect): 0=Normal, no object Score: 0 Severity Of Stroke: 0 = No Stroke rTPA Inclusion/Exclusion - Refusal of Treatment Patient Refused Treatment: No - Inclusion Criteria for Altepase Patient is 18 years or Older: Yes The Clinical Diagnosis of Ischemic Stroke That is Causing a Potentially Disabling Neurological Deficit: No Time of Onset is Well Established to be Less Than 270 Minute Before Treatment Would Begin: No Risk/Benefit Discussed With Patient/Family Member Present: No Past Medical History Reviewed: Historical Data, Nursing Documentation, Vital Signs Vital Signs: Last Vital Signs Temp 97.9 F 10/13/17 22:11 Pulse 71 10/13/17 22:11 Resp 18 10/13/17 22:11 BP 127/88 10/13/17 22:11 Pulse Ox 98 10/13/17 22:11 - Medical History PMH: Anxiety, Depression Denies: Diabetes, Hepatitis, HIV, HTN, Chronic Kidney Disease, Seizures, Sexually Transmitted Disease - Surgical History Surgical History: Cholecystectomy - Family History Family History: States: Unknown Family Hx - Social History Current smoker - smoking cessation education provided: No Alcohol: None Drugs: Denies - Home Medications Home Medications: Ambulatory Orders Medication Instructions Recorded No Known Home Med 10/13/17 - Allergies Allergies/Adverse Reactions: Allergies Allergy/AdvReac Type Severity Reaction Status Date / Time aspirin Allergy SHORTNESS Verified 10/13/17 22:10 OF BREATH Review of Systems ROS Statement: Except As Marked, All Systems Reviewed And Found Negative Constitutional: Negative for: Fever, Chills Cardiovascular: Negative for: Chest Pain Gastrointestinal: Negative for: Vomiting, Abdominal Pain, Diarrhea Musculoskeletal: Positive for: Back Pain (upper and mid), Leg Pain (bilateral numbness) Neurological: Positive for: Numbness (right arm), Headache Psych: Positive for: Depression. Negative for: Suicidal ideation Physical Exam - Reviewed Nursing Documentation Reviewed: Yes Vital Signs Reviewed: Yes - Physical Exam Appears: Positive for: No Acute Distress (comfortable but tearful) Head Exam: Positive for: ATRAUMATIC, NORMAL INSPECTION, NORMOCEPHALIC Skin: Positive for: Normal Color, Warm, Dry Eye Exam: Positive for: Normal appearance, EOMI, PERRL ENT: Positive for: Normal ENT Inspection Neck: Positive for: Painless ROM Cardiovascular/Chest: Positive for: Regular Rate, Rhythm. Negative for: Murmur Respiratory: Positive for: Normal Breath Sounds. Negative for: Respiratory Distress Gastrointestinal/Abdominal: Positive for: Normal Exam, Soft. Negative for: Tenderness Back: Positive for: Normal Inspection Extremity: Positive for: Normal ROM (full ROM on lower extremities). Negative for: Deformity, Swelling Neurologic/Psych: Positive for: Alert, collaborative physician II-XII (normal), Oriented (x3), Gait (steady). Negative for: Motor/Sensory Deficits - Laboratory Results Result Diagrams: 10/13/17 23:00 10/13/17 23:00 - ECG O2 Sat by Pulse Oximetry: 98 (RA) Pulse Ox Interpretation: Normal Medical Decision Making Medical Decision Making: Time: 22:27 Initial Impression: headache, bilateral leg paresthesia and depression. Differential includes: migraine, neuropathic pain, less likely CVA, MS, associated depression. Initial Plan: --Head w/o contrast [CT] --Alcohol serum --BMP --CPK --Drug screen, urine --Troponin I --Urine dipstick --CBC w/ differential --Crisis evaluation --Reevaluation -Patient states she has no primary doctor. Per chart she has been to [facility] clinic in 2017. 23:[address] FINDINGS: Brain: Hyperdense foci in bilateral basal ganglia, suspicious for calcifications. No hemorrhage. No significant white matter disease. Ventricles: Unremarkable. No ventriculomegaly. Bones/joints: Unremarkable. No acute fracture. Soft tissues: Unremarkable. Sinuses: Unremarkable as visualized. No acute sinusitis. Mastoid air cells: Unremarkable as visualized. No mastoid effusion. IMPRESSION: Hyperdense foci in bilateral basal ganglia, suspicious for calcifications. No evidence of acute intracranial hemorrhage. [address] Hummel who recommends admission to rule out CVA. 00:00 -Patient is admitted to [facility]. ----- Scribe Attestation: Documented by Ken Marcano, acting as a scribe for Corinne Dubon MD. Provider Scribe Attestation: All medical record entries made by the Scribe were at my direction and personally dictated by me. I have reviewed the chart and agree that the record accurately reflects my personal performance of the history, physical exam, medical decision making, and the department course for this patient. I have also personally directed, reviewed, and agree with the discharge instructions and disposition. Disposition - Clinical Impression Clinical Impression: Numbness on right side, Headache, Depression - Patient ED Disposition Is Patient to be Admitted: Yes Discussed With : Shahram Jason Doctor Will See Patient In The: ED Counseled Patient/Family Regarding: Studies Performed, Diagnosis - Disposition Disposition Time: 23:50 Condition: FAIR - Pt Status Changed To: Hospital Disposition Of: Observation - POA Present On Arrival: None
--- NOTE | 2017-10-14 00:41 | CP.PCM.HP ---
History of Present Illness - History of Present Illness History of Present Illness: Hx taken from patient Full code PMD: [facility] 32 y/o F with PMhx of depression/anxiety, obese that presented to ED c/o R/side numbness from head to toe since Yesterday, B/L LE pain from hip to toes for a few weeks that worsened today. Patient also c/o occipital headaches that she has had since Yesterday and states that they are very similar to the headaches she had in the past when she was admitted to Psych unit for depression. Admits feeling depressed and start crying during encounter. Patient denies SI or HI at this time. States that she has a troublesome relationship with the father of her children because he is an "alcoholic". Denies physical abuse but states she dosnt want to go back home with him and dosnt know what to do. The patient denies taking any medications at this time and denies drugs or ETOH. She has a 5 m/o and that is the reason why she had to stop taking Psych meds/ She had been on Celexa and Remeron in the past as per medical records. She also followed with [facility] at [facility] last year. Denies SOB, CP or palpitations. States that 2 days ago she had a pleuritic back pain that resolved Yesterday. Denies cough, fever, changes in urination or stools. ED Course: VS all WNL CBC/CMP/UTox unremarkable Head CT: B/L BG suspected calcifications(Please see full report) Neurology consult(Dr Hummel). As per Dr Dubon(ER attendant) Dr Hummel recommends MRI of the brain and will be evaluated by Dr Hummel AM Patient admitted for Obs PMHx: Depression with inpatient psych admission in 2016 SxHx: Cholecystectomy SHx: Denies x 3. Lives with FOB and 3 children. States FOB is alcoholic FHx: Unknown occupational therapist assistants: Had Vag bleeding for 4 months intermittent after Depo shot? Stopped in 08/2017. States she took OCPs for 1 week about 1 week ago. Present on Admission - Present on Admission Any Indicators Present on Admission: No Review of Systems - Review of Systems All systems: reviewed and no additional remarkable complaints except (Those described on HPI) Past Patient History - Past Social History Smoking Status: Never Smoked Alcohol: None Drugs: Denies Home Situation {Lives}: With Family - CARDIAC Hx Hypertension: No - PULMONARY Hx Tuberculosis: No - NEUROLOGICAL Hx Seizures: No - HEENT Hx HEENT Problems: No - RENAL Hx Chronic Kidney Disease: No - ENDOCRINE/METABOLIC Hx Endocrine Disorders: No - HEMATOLOGICAL/ONCOLOGICAL Hx Human Immunodeficiency Virus (HIV): No - INTEGUMENTARY Hx Dermatological Problems: No - MUSCULOSKELETAL/RHEUMATOLOGICAL Hx Musculoskeletal Disorders: No - GASTROINTESTINAL Hx Gastrointestinal Disorders: No - GENITOURINARY/GYNECOLOGICAL Hx Sexually Transmitted Disorders: No - PSYCHIATRIC Hx Anxiety: Yes Hx Depression: Yes - SURGICAL HISTORY Hx Surgeries: Yes Hx Cholecystectomy: Yes - ANESTHESIA Hx Anesthesia: Yes Hx Anesthesia Reactions: No Meds Allergies/Adverse Reactions: Allergies Allergy/AdvReac Type Severity Reaction Status Date / Time aspirin Allergy SHORTNESS Verified 10/13/17 22:10 OF BREATH Physical Exam - Constitutional Appears: Non-toxic - Head Exam Head Exam: ATRAUMATIC, NORMAL INSPECTION - Eye Exam Eye Exam: Conjunctival injection (Mild), EOMI, PERRL - ENT Exam ENT Exam: Mucous Membranes Moist - Neck Exam Neck exam: Positive for: Full Rom. Negative for: Lymphadenopathy, Tenderness - Respiratory Exam Respiratory Exam: Clear to Auscultation Bilateral, NORMAL BREATHING PATTERN. absent: Decreased Breath Sounds, Rales, Rhonchi, Wheezes, Respiratory Distress - Cardiovascular Exam Cardiovascular Exam: REGULAR RHYTHM, +S1, +S2. absent: Gallop, Systolic Murmur - GI/Abdominal Exam GI & Abdominal Exam: Normal Bowel Sounds, Soft. absent: Distended, Firm, Guarding, Rebound, Rigid, Tenderness - Extremities Exam Extremities exam: Positive for: full ROM, normal capillary refill, normal inspection. Negative for: calf tenderness, joint swelling, pedal edema - Neurological Exam Neurological exam: Alert, CN II-XII Intact, Motor Sensory Deficit (R/LE diminished sensation that does not correspond to any specific dermatoma distribution), Oriented x3, Reflexes Normal Additional comments: NO facial droop, strength is intact - Psychiatric Exam Psychiatric exam: Depressed - Skin Skin Exam: Normal Color, Warm Results - Vital Signs Recent Vital Signs: Last Vital Signs Temp 97.9 F 10/13/17 22:11 Pulse 71 10/13/17 22:11 Resp 18 10/13/17 22:11 BP 127/88 10/13/17 22:11 Pulse Ox 98 10/14/17 00:00 - Labs Result Diagrams: 10/13/17 23:00 10/13/17 23:00 Labs: Laboratory Results - last 24 hr 10/13/17 10/13/17 10/13/17 22:58 23:00 23:00 WBC 6.7 RBC 4.09 Hgb 11.6 L Hct 34.8 MCV 85.1 MCH 28.3 MCHC 33.3 RDW 14.0 Plt Count 259 MPV 8.9 Neut % (Auto) 49.1 L Lymph % (Auto) 40.1 H [place] % (Auto) 9.0 Eos % (Auto) 1.5 Baso % (Auto) 0.3 Neut # (Auto) 3.3 Lymph # (Auto) 2.7 [place] # (Auto) 0.6 Eos # (Auto) 0.1 Baso # (Auto) 0.0 Sodium 137 Potassium 3.9 Chloride 104 Carbon Dioxide 24 Anion Gap 13 BUN 13 Creatinine 0.6 L Est GFR ( Amer) > 60 Est GFR (Non-Af Amer) > 60 Random Glucose 92 Calcium 9.2 Total Creatine Kinase 65 Troponin I < 0.0120 Urine Opiates Screen Negative Urine Methadone Screen Negative Ur Barbiturates Screen Negative Ur Phencyclidine Scrn Negative Ur Amphetamines Screen Negative U Benzodiazepines Scrn Negative U Oth Cocaine Metabols Negative U Cannabinoids Screen Negative Alcohol, Quantitative < 10 Assessment & Plan - Assessment and Plan (Free Text) Assessment: 32 y/o F with PMHx of depression admitted for R/side paresthesias and B/L LE pain Paresthesias and B/L LE pain Acute Neurologic vs Psychosomatic CT head: B/L BG suspected calcifications(Please see full report) Neurology consulted at ER recs MRI of the Brain AM CBC/CMP,CPK/Utox unremarkable TSH, Vit B12, HgbA1c ordered CXR and EKG ordered Tylenol 650 mg once Patient allergic to ASA PE unremarkable except impaired sensation on RLE in non dermatomal distribution Psychiatry consult ordered Depression episode moderate Acute on chronic Has Hx of inpatient admission in 2016 and pharmacologic treatment until in 2017. Not Currently on any medication Denies SI or HI Good insight Dysfunctional home(SO ETOH abuser) Psych consult. Will f/u recs DVT prophylaxis SCDs for now
[2017-10-14 04:51] LABS: SQUAMOUS EPITHIAL 1 /hpf (0-5); URINE BILIRUBIN NEGATIVE (NEGATIVE); URINE BLOOD NEGATIVE (NEGATIVE); URINE CLARITY CLEAR (Clear); URINE COLOR STRAW (YELLOW); URINE GLUCOSE (UA) NEG (Normal); URINE LEUKOCYTE ESTERASE TRACE Leu/uL (Negative); URINE PROTEIN NEGATIVE (NEGATIVE); URINE UROBILINOGEN 0.2-1.0 mg/dL (0.2-1.0)
--- NOTE | 2017-10-14 08:24 | CT ---
Date of service: 10/13/2017 PROCEDURE: CT HEAD WITHOUT CONTRAST. HISTORY: headache COMPARISON: None available. TECHNIQUE: Axial computed tomography images were obtained through the head/brain without intravenous contrast. Radiation dose: Total exam DLP = 847 mGy-cm. This CT exam was performed using one or more of the following dose reduction techniques: Automated exposure control, adjustment of the mA and/or kV according to patient size, and/or use of iterative reconstruction technique. FINDINGS: HEMORRHAGE: No intracranial hemorrhage. BRAIN: No mass effect or edema. No atrophy or chronic microvascular ischemic changes. Bilateral basal ganglionic symmetrical hyperdensities consistent with basal ganglionic calcifications -nonspecific VENTRICLES: Unremarkable. No hydrocephalus. CALVARIUM: Unremarkable. PARANASAL SINUSES: Unremarkable as visualized. No significant inflammatory changes. MASTOID AIR CELLS: Unremarkable as visualized. No inflammatory changes. OTHER FINDINGS: None. IMPRESSION: Bilateral basal ganglionic symmetrical calcifications -nonspecific No intracranial hemorrhage or mass effect. Concordant results (preliminary interpretation) provided by [facility].
--- NOTE | 2017-10-14 10:26 | MRI ---
Date of service: 10/14/2017 PROCEDURE: MRI BRAIN WITHOUT CONTRAST HISTORY: right sided numbness COMPARISON: Noncontrast head CT from 10/13/2017. TECHNIQUE: Multiplanar, multisequence MR images of the brain were obtained without intravenous contrast enhancement. FINDINGS: HEMORRHAGE: None DWI: No evidence of an acute or early subacute infarction. BRAIN PARENCHYMA: There are several small T2/FLAIR hyperintense foci in the bifrontal subcortical white matter. There is no mass, mass effect or abnormal extra-axial fluid collection. There is no territorial infarction. The midline sagittal structures are normal. VENTRICLES: The ventricles are normal in size, shape and configuration. CRANIUM: There is normal bone marrow signal pattern. ORBITS: Grossly unremarkable. PARANASAL SINUSES/MASTOIDS: There is a small retention cyst/ polyp in the right maxillary alveolus and mild mucosal thickening in the right posterior ethmoid air cells. The remaining included paranasal sinuses are predominantly clear. The mastoid air cells are predominantly clear. VASCULAR SYSTEM: There are normal signal voids in the larger intracranial arteries. OTHER FINDINGS: None. IMPRESSION: No acute intracranial abnormality. Minimal bifrontal subcortical white matter changes are strictly nonspecific. The differential considerations include migraine headache effect, gliosis, premature mild chronic microangiopathic changes, vasculitis, Lyme disease and demyelinating disease including multiple sclerosis. Clinical correlation and follow-up is advised.
--- NOTE | 2017-10-14 11:33 | RAD ---
HISTORY: COMPARISON: 02/25/2016. TECHNIQUE: Chest PA and lateral FINDINGS: LINES AND TUBES: None. LUNG AND PLEURA: The lungs are well inflated and clear. No pleural effusion or pneumothorax. HEART AND MEDIASTINUM: The heart is not enlarged. The hilar and mediastinal contours are within normal limits. SKELETAL STRUCTURES: The bony structures are within normal limits for the patient's age. VISUALIZED UPPER ABDOMEN: Normal. OTHER FINDINGS: None. IMPRESSION: No active pulmonary disease.
--- NOTE | 2017-10-14 13:25 | CARD ---
APPROVED REPORT Date of service: 10/13/2017 EKG Measurement Heart [id number] <Conclusion> Normal sinus rhythm Normal ECG
[2017-10-14 14:14] VITALS: O2SAT 100
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
--- NOTE | 2017-10-14 15:15 | CP.PCM.DIS ---
Provider - Provider Date of Admission: 10/13/17 23:52 Attending physician: Octavia Quesada MD Time Spent in preparation of Discharge (in minutes): 15 Diagnosis - Discharge Diagnosis (1) Conversion disorder Status: Acute Hospital Course - Lab Results Lab Results: Most Recent Lab Values WBC 6.7 K/uL (4.8-10.8) 10/13/17 23:00 RBC 4.09 Mil/uL (3.80-5.20) 10/13/17 23:00 Hgb 11.6 g/dL (12.0-16.0) L 10/13/17 23:00 Hct 34.8 % (34.0-47.0) 10/13/17 23:00 MCV 85.1 fl (81.0-99.0) 10/13/17 23:00 MCH 28.3 pg (27.0-31.0) 10/13/17 23:00 MCHC 33.3 g/dL (33.0-37.0) 10/13/17 23:00 RDW 14.0 % (11.5-14.5) 10/13/17 23:00 Plt Count 259 K/uL (130-400) 10/13/17 23:00 MPV 8.9 fl (7.2-11.7) 10/13/17 23:00 Neut % (Auto) 49.1 % (50.0-75.0) L 10/13/17 23:00 Lymph % (Auto) 40.1 % (20.0-40.0) H 10/13/17 23:00 [place] % (Auto) 9.0 % (0.0-10.0) 10/13/17 23:00 Eos % (Auto) 1.5 % (0.0-4.0) 10/13/17 23:00 Baso % (Auto) 0.3 % (0.0-2.0) 10/13/17 23:00 Neut # (Auto) 3.3 K/uL (1.8-7.0) 10/13/17 23:00 Lymph # (Auto) 2.7 K/uL (1.0-4.3) 10/13/17 23:00 [place] # (Auto) 0.6 K/uL (0.0-0.8) 10/13/17 23:00 Eos # (Auto) 0.1 K/uL (0.0-0.7) 10/13/17 23:00 Baso # (Auto) 0.0 K/uL (0.0-0.2) 10/13/17 23:00 Sodium 137 mmol/l (132-148) 10/13/17 23:00 Potassium 3.9 MMOL/L (3.6-5.0) 10/13/17 23:00 Chloride 104 mmol/L (98-107) 10/13/17 23:00 Carbon Dioxide 24 mmol/L (22-30) 10/13/17 23:00 Anion Gap 13 (10-20) 10/13/17 23:00 BUN 13 mg/dl (7-17) 10/13/17 23:00 Creatinine 0.6 mg/dl (0.7-1.2) L 10/13/17 23:00 Est GFR ( Amer) > 60 10/13/17 23:00 Est GFR (Non-Af Amer) > 60 10/13/17 23:00 Random Glucose 92 mg/dL (65-105) 10/13/17 23:00 Calcium 9.2 mg/dL (8.4-10.2) 10/13/17 23:00 Total Creatine Kinase 65 U/L (30-135) 10/13/17 23:00 Troponin I < 0.0120 ng/mL (0.00-0.120) 10/13/17 23:00 Vitamin B12 334 pg/mL (239-931) 10/14/17 04:30 TSH 3rd Generation 1.78 mIU/ML (0.46-4.68) 10/14/17 04:30 Urine Color Straw (YELLOW) 10/14/17 04:30 Urine Clarity Clear (Clear) 10/14/17 04:30 Urine pH 6.0 (5.0-8.0) 10/14/17 04:30 Ur Specific [place] < 1.005 (1.003-1.030) 10/14/17 04:30 Urine Protein Negative mg/dL (NEGATIVE) 10/14/17 04:30 Urine Glucose (UA) Neg mg/dL (Normal) 10/14/17 04:30 Urine Ketones Negative mg/dL (NEGATIVE) 10/14/17 04:30 Urine Blood Negative (NEGATIVE) 10/14/17 04:30 Urine Nitrate Negative (NEGATIVE) 10/14/17 04:30 Urine Bilirubin Negative (NEGATIVE) 10/14/17 04:30 Urine Urobilinogen 0.2-1.0 mg/dL (0.2-1.0) 10/14/17 04:30 Ur Leukocyte Esterase Trace [place]/uL (Negative) 10/14/17 04:30 Urine RBC (Auto) 1 /hpf (0-3) 10/14/17 04:30 Urine Microscopic WBC 2 /hpf (0-5) 10/14/17 04:30 Ur Squamous Epith Cells 1 /hpf (0-5) 10/14/17 04:30 Urine Opiates Screen Negative (NEGATIVE) 10/13/17 22:58 Urine Methadone Screen Negative (NEGATIVE) 10/13/17 22:58 Ur Barbiturates Screen Negative (NEGATIVE) 10/13/17 22:58 Ur Phencyclidine Scrn Negative (NEGATIVE) 10/13/17 22:58 Ur Amphetamines Screen Negative (NEGATIVE) 10/13/17 22:58 U Benzodiazepines Scrn Negative (NEGATIVE) 10/13/17 22:58 U Oth Cocaine Metabols Negative (NEGATIVE) 10/13/17 22:58 U Cannabinoids Screen Negative (NEGATIVE) 10/13/17 22:58 Alcohol, Quantitative < 10 mg/dl (0-10) 10/13/17 23:00 - Hospital Course Hospital Course: 32 yo f with pmh of depression/ anxiety, obese that presented to ED due to having numbness from head to toe and B/L LE pain from. Was admitted for R side paresthesias and B/L LE pain. Neuro and psych were on the case, CT scan and MRI were taken, no acute changes. Neuro cleared, Pt denied being admitted for psych. Pt symptoms have improved and comfortable to go home. Neuro, Psych and medical team approve for discharge home. Discharge Exam - Head Exam Head Exam: ATRAUMATIC, NORMAL INSPECTION, NORMOCEPHALIC - Eye Exam Eye Exam: EOMI, Normal appearance, PERRL Pupil Exam: NORMAL ACCOMODATION, PERRL - ENT Exam ENT Exam: Normal Exam - Neck Exam Neck exam: Full Rom - Respiratory Exam Respiratory Exam: Clear to PA & Lateral, NORMAL BREATHING PATTERN, UNREMARKABLE. absent: Rales, Rhonchi, Wheezes - Cardiovascular Exam Cardiovascular Exam: REGULAR RHYTHM, +S1, +S2. absent: RRR, Rubs - GI/Abdominal Exam GI & Abdominal Exam: Normal Bowel Sounds, Unremarkable - Extremities Exam Extremities exam: full ROM - Back Exam Back exam: FULL ROM. absent: CVA tenderness (L), CVA tenderness (R) - Neurological Exam Neurological exam: Alert, CN II-XII Intact, Normal Gait, Oriented x3, Reflexes Normal - Psychiatric Exam Psychiatric exam: Normal Affect, Normal Mood - Skin Skin Exam: Dry, Intact, Normal Color, Warm Discharge Plan - Follow Up Plan Condition: FAIR Disposition: HOME/ ROUTINE Instructions: Depression, Depression, Adult (DC), Depression (DC) Additional Instructions: Patient counseled to follow up w/ PMD and outpatient psychiatry ED precautions given
[2017-10-14 16:14] VITALS: BP 118/78; PULSE 67; RESP 16; TEMP 97.9
== END 2017-10-14 17:00 | disposition home or self-care (01) ==
LOC: H.ER 21:55 → H.ERHOLD 23:52 → H.TEL 10-14 15:42
PROVIDERS: ADMIT Family Medicine Geriatric Medicine; ATTEND Family Medicine Geriatric Medicine
DX: F44.9 Dissociative and conversion disorder, unspecified (principal); F41.9 Anxiety disorder, unspecified; F32.9 Major depressive disorder, single episode, unspecified; E66.9 Obesity, unspecified; Z68.35 Body mass index [BMI] 35.0-35.9, adult; Z88.6 Allergy status to analgesic agent; Z91.19 Patient's noncompliance with other medical treatment and regimen; Z91.14 Patient's other noncompliance with medication regimen
CPT/HCPCS: 70450; 70551; 71046; 80048; 80320; 80324; 80345; 80346; 80349; 80353; 80358; 80361; 81003; 81025; 82550; 82607; 83036; 83992; 84443; 84484; 85025; 86618; 93005; 99285; G0378